=== PATIENT | female | born 1960 | race Caucasian/White ===

== ENCOUNTER → 2024-01-01 09:37 | Outpatient (BNVA) | payer MEDICARE, MEDICAID, SELFPAY ==
[2023-12-22 13:40] VITALS: BP 154/87; BMI 24.3
== END ==
PROVIDERS: Family Provider Student in an Organized Health Care Education/Training Program; PCP Family Medicine; Visit Provider Psychiatry & Neurology Neurology
DX: I10 Essential (primary) hypertension (principal); F43.10 Post-traumatic stress disorder, unspecified; G30.9 Alzheimer's disease, unspecified; Z79.899 Other long term (current) drug therapy
CPT/HCPCS: 36415; 82542; 99203; 99204

== ENCOUNTER 2024-01-29 06:55 | Outpatient (CLI) | payer MEDICARE, MEDICAID, SELFPAY ==
[2023-12-22 13:40] VITALS: BP 154/87; BMI 24.3
--- NOTE | 2024-01-29 07:15 | MR_ITS ---
WS: [id number] MRI BRAIN WITHOUT CONTRAST HISTORY: F03.A18 - Unspecified dementia, mild, with other behavior... COMPARISON: None available. TECHNIQUE: Diffusion imaging, multiplanar T1, T2 and FLAIR imaging obtained. No evidence for acute infarct or hemorrhage. Marquez-white matter differentiation is normal. No prior infarct. Scattered T2 and FLAIR signal hyperintensities predominantly within the subcortical white matter is symmetric bilaterally. No infarct. No lacunar infarct. Cerebellum is negative. Mild bilateral hippocampal atrophy. Ventricles and extra-axial spaces are normal. No inferior displacement of cerebellar tonsils. Very slight ectopia of the cerebellar tonsils. The se lla turcica and pituitary gland are unremarkable. Dural venous sinuses and [place] demonstrate no abnormality on this unenhanced studies. Paranasal sinuses: Clear. Mastoid air cells: Normal. Calvarium and scalp: Intact. MR/MR head wo con* [id number] IMPRESSION: 1. No acute infarct or hemorrhage. 2. Mild cerebral atrophy and mild hippocampal atrophy. 3. Mild small vessel ischemic type changes in the subcortical white matter. No large territory infarct.
--- NOTE | 2024-01-29 08:00 | USCV_ITS ---
Leeann Medrano Age: 63 Gender: F : 1960 Exam Date: 01/29/2024 07:56 Ordering Phys: Joshua Edgar MD Technologist: KHALIF Exam Location: [facility] [place] Indication: Stenosis Risk Factors: Previous Vascular Surgery: Right Brachial BP: / Left Brachial BP: / Right Left Velocity (cm/s) Spectral Plaque Velocity (cm/s) Spectral Plaque Syst/Diast Broadening Syst/Diast Broadening 94.40/ 20.60 Prox CCA 95.70 / 26.60 77.50/ 18.00 Mid CCA 88.70 / 18.60 63.90/ 16.50 Distal CCA 86.10 / 20.90 70.00/ 18.00 Prox ICA 47.60 / 15.50 76.60/ 23.60 Mid ICA 92.20 / 30.60 82.90/ 24.60 Distal ICA 66.60 / 20.40 64.50 ECA 80.80 1.30 ICA/CCA 1.10 Antegrade Vertebral Antegrade 52.90/ 14.20 cm/s 55.30/ 17.10 cm/s Bi Subclavian Bi 88.90 80.40 CONCLUSIONS Right ICA stenosis <50%. Left ICA stenosis <50%. Intimal thickening in the common carotid arteries and internal carotid arteries bilaterally. Normal antegrade Doppler flow noted in the right vertebral artery. Normal antegrade Doppler flow noted in the left vertebral artery. Brandon Nguyễn MD (Electronically Signed) Final Date: 29 January 2024 15:44 S
== END 2024-01-29 06:56 | disposition home or self-care (01) ==
PROVIDERS: PCP Family Medicine; Visit Provider Psychiatry & Neurology Neurology
DX: I65.23 Occlusion and stenosis of bilateral carotid arteries (principal); F03.A18 Unspecified dementia, mild, with other behavioral disturbance; Z79.899 Other long term (current) drug therapy; F43.10 Post-traumatic stress disorder, unspecified; I10 Essential (primary) hypertension; F03.90 Unspecified dementia, unspecified severity, without behavioral disturbance, psychotic disturbance, mood disturbance, and anxiety
CPT/HCPCS: 70551; 93880

== ENCOUNTER → 2024-05-02 12:23 | Outpatient (BNVA) | payer MEDICARE, SELFPAY ==
[2023-12-22 13:40] VITALS: BP 154/87; BMI 24.3
== END ==
PROVIDERS: PCP Family Medicine; Visit Provider Psychiatry & Neurology Neurology
DX: G30.9 Alzheimer's disease, unspecified (principal); F02.80 Dementia in other diseases classified elsewhere, unspecified severity, without behavioral disturbance, psychotic disturbance, mood disturbance, and anxiety
CPT/HCPCS: 36415; 83520; 99212

== ENCOUNTER 2024-11-19 11:27 | Outpatient (CLI) | payer MEDICARE, OTHER, SELFPAY ==
[2023-12-22 13:40] VITALS: BP 154/87; BMI 24.3
--- NOTE | 2024-11-19 11:45 | MR_ITS ---
WS: [id number] MRI BRAIN WITHOUT CONTRAST HISTORY: F03.A18 - Unspecified dementia, possible stroke. Left-sided weakness. COMPARISON: 01/29/2024 TECHNIQUE: Diffusion imaging, multiplanar T1, T2 and FLAIR imaging obtained. Normal diffusion imaging. No acute infarct. Mild cerebral and cerebellar atrophy. Mild progression of small vessel disease since 01/29/2024 in the subcortical supratentorial white matter. No prior large territory infarct. No lacunar infarct. Very minimal hippocampal atrophy without progression. Ventricles and extra-axial spaces are normal. No intra displacement of the cerebellar tonsils. Empty sella turcica. Pituitary gland is in the floor the sella turcica. Similar to the prior study. Dural venous sinuses and [place] demonstrate no abnormality on this unenhanced studies. Paranasal sinuses: Clear. Mastoid air cells: Normal. Calvarium and scalp: Intact. MR/MR head wo con* [id number] IMPRESSION: 1. Normal diffusion imaging. No acute infarct. 2. Mild cerebral and cerebellar atrophy. 3. Mild progression of small vessel disease since the prior study of 01/29/2024 . 4. No hemorrhage. 5. Minimal hippocampal atrophy, stable.
== END 2024-11-19 11:28 | disposition home or self-care (01) ==
PROVIDERS: PCP Family Medicine; Visit Provider Psychiatry & Neurology Neurology
DX: I65.23 Occlusion and stenosis of bilateral carotid arteries (principal); Z86.73 Personal history of transient ischemic attack (TIA), and cerebral infarction without residual deficits; I10 Essential (primary) hypertension; R00.2 Palpitations; R07.9 Chest pain, unspecified; F17.210 Nicotine dependence, cigarettes, uncomplicated
CPT/HCPCS: 70551; 93005; 99204